=== PATIENT | female | born 1960 | race Caucasian/White ===

== ENCOUNTER 2022-04-10 11:01 | Outpatient (CLI) | payer BC | END 2022-04-10 11:02 | disposition home or self-care (01) | LOC: BICMAMMO 11:01 | PROVIDERS: ATTEND Registered Nurse | DX: Z12.31 Encounter for screening mammogram for malignant neoplasm of breast (principal); Z13.820 Encounter for screening for osteoporosis; Z78.0 Asymptomatic menopausal state; M85.851 Other specified disorders of bone density and structure, right thigh; M85.852 Other specified disorders of bone density and structure, left thigh | CPT/HCPCS: 77063; 77067; 77080 ==

== ENCOUNTER 2022-10-28 08:58 | Outpatient (CLI) | payer BC ==
[2022-10-28] MEDS ORDERED: Magnevist 469MG/ML 20 ML VIAL ONE (15:44)
== END 2022-10-28 08:59 | disposition home or self-care (01) ==
LOC: MRI 08:58
PROVIDERS: ATTEND Orthopaedic Surgery
DX: M25.552 Pain in left hip (principal); M16.0 Bilateral primary osteoarthritis of hip; S73.102A Unspecified sprain of left hip, initial encounter; S76.812A Strain of other specified muscles, fascia and tendons at thigh level, left thigh, initial encounter; M70.62 Trochanteric bursitis, left hip
CPT/HCPCS: A9579

== ENCOUNTER 2024-03-17 08:15 | Outpatient (CLI) | payer BC | END 2024-03-17 08:16 | disposition home or self-care (01) | LOC: BICMRI 08:15 | PROVIDERS: ATTEND Orthopaedic Surgery | DX: S46.012A Strain of muscle(s) and tendon(s) of the rotator cuff of left shoulder, initial encounter (principal); M19.012 Primary osteoarthritis, left shoulder; M25.412 Effusion, left shoulder; R60.0 Localized edema ==

== ENCOUNTER 2024-11-22 09:09 | Outpatient (CLI) | payer BC | END 2024-11-22 09:10 | disposition home or self-care (01) | LOC: BICMAMMO 09:09 | PROVIDERS: ATTEND Registered Nurse | DX: Z12.31 Encounter for screening mammogram for malignant neoplasm of breast (principal); E89.40 Asymptomatic postprocedural ovarian failure; Z79.818 Long term (current) use of other agents affecting estrogen receptors and estrogen levels; M85.851 Other specified disorders of bone density and structure, right thigh; M85.852 Other specified disorders of bone density and structure, left thigh | CPT/HCPCS: 77063; 77067; 77080 ==